=== PATIENT | female | born 1950 | race Two or more races ===

== ENCOUNTER 2021-07-14 13:25 | Inpatient (IN) | payer MEDICARE, MEDICAID, SELFPAY ==
[2021-07-14] VITALS (7 sets, daily range): BP systolic 105–134; BP diastolic 60–107; PULSE 68–89; RESP 16–20; TEMP 36.5–36.6; O2SAT 94–100; BMI 23.3
--- NOTE | ~2021-07-14 | XR_ITS ---
EXAMINATION: XR chest 2V DATE: 07/14/2021 16:30 INDICATION: Mass and one month of loss of appetite and vomiting TECHNIQUE: frontal and lateral views of the chest were obtained. COMPARISON: None FINDINGS: The lungs are clear with no focal airspace opacities, pulmonary edema, pleural effusion or pneumothor ax. Cardiomegaly. S-shaped thoracolumbar scoliosis with moderate spondylosis. IMPRESSION: 1. Cardiomegaly. Reviewed, dictated and finalized at location A. IMPRESSION: 1. Cardiomegaly.
--- NOTE | ~2021-07-14 | CT_ITS ---
EXAMINATION: CTA BRAIN/CAROTID DATE: 07/14/2021 19:23 INDICATION: Confusion TECHNIQUE: Computed tomographic angiography (CTA) of the head and neck was performed with 100 mL Omni paque-350 intravenous contrast. Multiplanar reconstructions and maximum intensity projection 3D-recon structions of the carotid arteries and of the intracranial arteries were created by the technologist on a separate workstation. Precontrast CT of the head was also obtained. Automated exposure control and iterative reconstruction technique were employed.The dose-length product was 1455.90 mGy-cm. COMPARISON: None. FINDINGS: Carotid arteries: The aortic arch is normal in caliber with no dissection or atherosclerotic plaque. There is 0% stenos is of the right carotid bulb relative to normal distal artery lumen diameter (NASCET criteria). There is 0% stenosis of the left carotid bulb relative to normal distal artery lumen diameter. Cervical so ft tissues are unremarkable. The visualized airway and apices of the lungs are clear. Mild cervical s pondylosis. Head: No acute intracranial hemorrhage, acute infarction or abnormal extra axial fluid collection. There is moderate scattered white matter hypoattenuation consistent with chronic small vessel ischemic diseas e. Ventricles are normal and symmetric. No mass/mass effect. No abnormally enhancing brain lesions. Changes of bilateral intraocular lens replacement. The orbits, paranasal sinuses and mastoid air enoc ls are normal. Intracranial arteries There is no hemodynamically significant stenosis in the vertebral, basilar and internal carotid arter ies. There is a 6 x 4 x 4 mm aneurysm extending inferomedially from the C7 (communicating) segment of the left internal carotid artery at the suprasellar cistern. Vertebral arteries are codominant. Both A1 and P1 segments are patent. Cerebral arterial arborization appears symmetric. IMPRESSION: 1. 0% stenosis of the left and right carotid bulbs relative to normal distal artery lumen diameter (N ASCET criteria). 2. Moderate cerebral white matter hypoattenuation consistent with chronic small vessel ischemic disea se. No acute intracranial process. 3. 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 Otherwise unremarkable cerebral CT angiogram. Reviewed, dictated and finalized at location A. IMPRESSION: 1. 0% stenosis of the left and right carotid bulbs relative to normal distal ar lynn lumen diameter (NASCET criteria). 2. Moderate cerebral white matter hypoattenuation consistent with chronic small vessel ischemic disease. No acute intracranial process. 3. 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 Otherwise unremarkable cerebral CT angiog calvin.
--- NOTE | ~2021-07-14 | CT_ITS ---
EXAMINATION: CT brain wo con DATE: 07/21/2021 13:44 INDICATION: Fever of unknown origin. TECHNIQUE: Computed tomography (CT) of the head was performed without intravenous contrast. The mA wa s adjusted according to patient size. Iterative reconstruction technique was employed. The dose-lengt h product was 1059.33 mGy-cm. COMPARISON: Head CT FINDINGS: Motion artifact is noted. There are scattered areas of low attenuation in the cerebral whit e matter and bilateral deep carmona nuclei. There are areas of low attenuation involving the medial temp oral lobes and left parietal lobe. There is no intracranial hemorrhage, acute infarction, or abnormal intracranial mass lesion. The ventricles are normal in size. There is a reconstruction plate with sc rews involving right zygomatic arch. The mastoid air cells are normal. There is mild mucosal thickeni ng in the ethmoid sinuses. There are likely changes of ocular lens replacement surgeries. IMPRESSION: 1. Stable moderate nonspecific cerebral white matter disease, disease of the deep carmona nuclei, and di sease of the temporal lobes and left parietal lobe. These findings may represent chronic small vessel ischemic disease and subacute versus chronic infarcts. The differential diagnosis also includes cere britis such as HSV encephalitis. Abdomen MRI without and with contrast is recommended. Reviewed, dictated and finalized at location A. IMPRESSION: 1. Stable moderate nonspecific cerebral white matter disease, disease of the de ep carmona nuclei, and disease of the temporal lobes and left parietal lobe. These findings may represent chronic small vessel ischemic disease and subacute vers us chronic infarcts. The differential diagnosis also includes cerebritis such a s HSV encephalitis. Abdomen MRI without and with contrast is recommended.
--- NOTE | ~2021-07-14 | XR_ITS ---
XR chest 1V portable DATE: 07/20/2021 10:25 INDICATION: Fever TECHNIQUE: Portable AP chest on 07/20/2021 at 1021 hours COMPARISON: 07/24/2021 AP and lateral chest FINDINGS: Cardiomegaly. There is mild infiltrate or atelectasis in the left lower lung. The lungs oth erwise appear clear. Diffuse osteopenia. Scoliosis and diffuse idiopathic skeletal hyperostosis of the thoracic spine. Diffuse osteopenia. IMPRESSION: Mild infiltrate or atelectasis in the left lower lung Cardiomegaly Reviewed, dictated and finalized at location A.
--- NOTE | ~2021-07-14 | XR_ITS ---
EXAMINATION: XR chest 1V portable DATE: 07/20/2021 22:05 INDICATION: Fever, cough, and altered mental status. TECHNIQUE: A single frontal view of the chest was obtained. COMPARISON: Chest single view 07/20/2021 at 10:17 AM, chest 2 views 07/14/2021 FINDINGS: There is a diffuse interstitial pattern, consistent with mild pulmonary edema. There are ai rspace opacities at left lung base. There is a small left pleural effusion. No pneumothorax or cardio megaly is noted. IMPRESSION: 1. Mild pulmonary edema. 2. Small left pleural effusion. 3. Stable airspace opacities at left lung base, consistent with atelectasis versus pneumonia. 4. Cardiomegaly. Reviewed, dictated and finalized at location A. IMPRESSION: 1. Mild pulmonary edema. 2. Small left pleural effusion. 3. Stable airspace opacities at left lung base, consistent with atelectasis kim isauro pneumonia. 4. Cardiomegaly.
--- NOTE | ~2021-07-14 | MR_ITS ---
EXAMINATION: MR brain/brain stem wo/w con DATE: 07/21/2021 16:15 INDICATION: Fever. Altered mental status. TECHNIQUE: Magnetic resonance imaging (MRI) of the brain and brainstem was performed without and with 11 mL MultiHance intravenous contrast. Sequences included sagittal and axial T1-weighted FSE, axial diffusion-weighted FS EPI, axial T2*-weighted GRE, axial T2-weighted FLAIR Propeller, and axial T2-we ighted Propeller. Postcontrast sequences included axial, sagittal, and coronal T1-weighted FSE. Appar ent diffusion coefficient (ADC) maps were created. COMPARISON: Head CT 07/21/2021 FINDINGS: There is no intracranial hemorrhage or acute ischemic infarct. There is widespread increase d T2-weighted signal intensity in the brain with involvement of areas of the bilateral frontal, tempo ral, parietal, and occipital lobes including involvement of carmona and white matter. There are areas of involvement in the bilateral basal ganglia and thalami, midbrain, perry, and bilateral cerebellar whi te matter. There are some small scattered faint ill-defined areas of contrast enhancement in the brai n. IMPRESSION: 1. Diffuse brain disease. The differential diagnosis includes viral encephalitis and gliomatosis cere elsie. Reviewed, dictated and finalized at location A. IMPRESSION: 1. Diffuse brain disease. The differential diagnosis includes viral encephaliti s and gliomatosis cerebri.
--- NOTE | ~2021-07-14 | XR_ITS ---
EXAMINATION: XR lumbar puncture diagnostic DATE: 07/21/2021 19:58 INDICATION: Encephalitis. Fever. TECHNIQUE: The procedure including the risks, benefits, and alternatives was discussed with the patie nt and the patient's daughter Dina Rodriguez. Risks discussed included spinal headache, bleeding, and infection. The daughter understood the risks and agreed to proceed. The skin overlying the L5-S1 level was prepped and draped in usual sterile fashion. Subcutaneous 1% lidocaine was used for local anesthesia. A 20 gauge spinal needle was advanced under fluoroscopic guidance. The needle was remov ed and the entry site was cleaned and dressed. There were no immediate complications. Fluoroscopy ex posure time was 0.1 minutes. The total number of images was 1. FINDINGS: Real-time fluoroscopy demonstrates the needle at the L5-S1 level. The opening pressure was 9 cm water (Normal range is variably defined as 6-20 cm water and up to 25 cm water in obese patients . Pressure >25 cm water is one of the modified Dandy criteria for idiopathic intracranial hypertensio n). 14 mL of clear, orange fluid was collected in 4 tubes. IMPRESSION: 1. Successful fluoro-guided lumbar puncture. Traumatic tap. Reviewed, dictated and finalized at location A.
--- NOTE | ~2021-07-14 | US_ITS ---
EXAMINATION: US carotid duplex BI DATE: 07/15/2021 08:39 INDICATION: Confusion TECHNIQUE: Grayscale, color Doppler, and pulsed Doppler images of the cervical carotid arteries were obtained. The degree of vessel stenosis is placed in one of the following categories: normal, <50%, 5 0-69%, >=70% but less than near-occlusion, near-occlusion, or total occlusion. Note that percent sten osis relative to normal distal artery lumen diameter is indirectly measured from velocity measurement s as described by Misha, et al. Radiology 2003; 229:340-346. COMPARISON: 07/24/2021 CTA brain carotid FINDINGS: RIGHT: The right common carotid artery (CCA) peak systolic velocity (PSV) is 48.7 cm/s. The right internal c arotid artery (ICA) PSV is 56.7 cm/s. The right ICA end-diastolic velocity (EDV) is 15.8 cm/s. The ri ght ICA/CCA PSV ratio is 1.2. Grayscale and color Doppler images yield an estimate of 0% diameter red uction from plaque in the ICA. The external carotid artery (ECA) PSV is 63.5 cm/s. There is antegrade flow in the right vertebral artery. LEFT: The left CCA PSV is 70.3 cm/s. The left ICA PSV is 42.4 cm/s. The left ICA EDV is 9.8 cm/s. The left ICA/CCA PSV ratio is 0.6. Grayscale and color Doppler images yield an estimate of 0% diameter reducti on from plaque in the ICA. The ECA PSV is 36.9 cm/s. There is antegrade flow in the left vertebral ar lynn. IMPRESSION: 1. 0% stenosis in the right internal carotid artery. 2. 0% stenosis in the left internal carotid artery. Reviewed, dictated and finalized at Location A. Reviewed, dictated and finalized at location A.
--- NOTE | ~2021-07-14 | CT_ITS ---
EXAMINATION: CTA chest PE abdomen pel DATE: 07/21/2021 13:44 INDICATION: Fever of unknown origin. TECHNIQUE: Computed tomography angiography (CTA) of the chest was performed with 100 mL Omnipaque-350 intravenous contrast timed to evaluate the pulmonary arteries. Coronal maximum intensity projection 3D-reconstructions were created by the technologist. Computed tomography (CT) of the abdomen and pelv is was performed with intravenous contrast. Automated exposure control and iterative reconstruction t echnique were employed. The dose-length product was 954.73 mGy-cm. COMPARISON: None. FINDINGS: CTA chest: Motion artifact is noted. There is mild atelectasis in left lower lobe. There is a small l eft pleural effusion. Cardiomegaly is noted. There is a moderate-sized pericardial effusion with fernando cardial enhancement. There are acute pulmonary emboli in right upper lobe, right middle lobe, and rig ht lower lobe. Sensitivity for other sites of involvement is decreased by motion artifact. There are bridging endplate osteophytes at multiple levels in the spine, consistent with diffuse idiopathic ske letal hyperostosis (DISH). There is trabecular thickening involving T6 vertebral body and right poste rior elements, consistent with Paget disease. CT abdomen and pelvis: There is a small sliding hiatal hernia. The liver, gallbladder, spleen, pancre as, and adrenal glands are normal. There is a 9 mm cyst in right kidney. There is a 16 mm cyst in lef t kidney. There are no dilated loops of bowel. The appendix is normal. There are no pathologically en larged lymph nodes. There is no free intraperitoneal fluid. There is moderate lumbar spondylosis. Tra becular thickening in L5 vertebral body may be at Paget disease or a hemangioma. IMPRESSION: 1. Acute right-sided pulmonary emboli. 2. Small left pleural effusion. 3. Moderate-sized pericardial effusion. Pericardial enhancement suggests an exudate. 4. Cardiomegaly. Reviewed, dictated and finalized at location A. IMPRESSION: 1. Acute right-sided pulmonary emboli. 2. Small left pleural effusion. 3. Moderate-sized pericardial effusion. Pericardial enhancement suggests an exu date. 4. Cardiomegaly.
[2021-07-14 17:09] LABS: Basophils Percent Auto 0.4 % (0.2-1.2); Eosinophils Percent Auto 0.4 % (0-4.4); Hematocrit 31.5 % (37.0-47.0); Hemoglobin 10.2 g/dL (12.0-15.0); Immature Granulocyte Absolute 0.04 K/mm3 (0.00-0.031); Immature Granulocyte Percent A 0.6 % (0-0.5); Lymphocytes Absolute Auto 1.21 K/mm3 (0.9-3.2); Lymphocytes Percent Auto 18.1 % (18.3-44.2); Mean Corpuscular HGB Conc 32.4 g/dl (32-36); Mean Corpuscular Hemoglobin 28.7 pg (26-34); Mean Corpuscular Volume 88.5 fl (80-100); Mean Platelet Volume 9.6 fl (7.4-10.4); Monocytes Absolute Auto 0.6 K/mm3 (0.1-0.6); Monocytes Percent Auto 8.4 % (2.6-8.5); Neutrophils Absolute Auto 4.8 K/mm3 (1.3-6.7); Neutrophils Percent Auto 72.1 % (45.5-73.1); Platelet Count Result 402 k/mm3 (150-375); Red Blood Count 3.56 M/mm3 (4.2-5.4); Red Cell Distribution Width 13.5 % (11.5-14.5); White Blood Count 6.7 K/mm3 (4.5-10.0)
[2021-07-14 17:19] LABS: Alanine Aminotransferase 8 U/L (4-35); Albumin Level 4.4 g/dL (3.5-5.1); Alkaline Phosphatase 93 U/L (38-126); Anion Gap 12 mmol/L (8-16); Aspartate Amino Transferase 28 U/L (14-36); Bilirubin,Total 0.6 mg/dL (0.2-1.3); Blood Urea Nitrogen 13 mg/dL (7-17); Calcium 9.2 mg/dL (8.4-10.2); Carbon Dioxide 16 mmol/L (22-30); Chloride 101 mmol/L (98-107); Estimated CRCL calculation 52 ml/min; Estimated Glomerular Filt Rate > 60; Glucose 103 mg/dL (65-110); Lipase 256 U/L (23-300); Potassium 3.7 mmol/L (3.4-5.0); Sodium 129 mmol/L (137-145)
[2021-07-14 17:47] LABS: Alveolar/Arterial O2 Gradient 31.6 mmHg; Base Excess ABG -3.9 mEq/l (+/-2.0); Fractional Inspired Oxygen 21 %; HCO3 ABG 17.9 mEq/l (22.0-26.0); Oxygen Content ABG 13.6 %vol (16.0-22.0); Oxygen Saturation ABG 97.7 % (95.0-100.0); Oxyhemoglobin 96.1 % THb (90.0-100.0); PO2 ABG 90.7 mmHg (80.0-100.0); PO2 FiO2 Ratio Arterial Blood 4.32 %
[2021-07-14 17:50] LABS: Device ROOM AIR; Modified Allen's Test Pass; PCO2 ABG 22.9 mmHg (35.0-45.0); Site Drawn RIGHT RADIAL
--- NOTE | 2021-07-14 18:09 | ED.GENADULT ---
HPI - General Adult General Chief complaint: Unspecified Stated complaint: weakness Time Seen by Provider: 07/14/21 15:36 Source: family Mode of arrival: ambulatory Limitations: language barrier, clinical condition and dementia History of Present Illness HPI narrative: 70-year-old female Brought in by her daughter for weakness poor appetite and general failure to thrive Patient understands Danish but does not speak it well and the daughter does all the interpreting and gives all the history She says that her mom came from [facility] to live with her brother and Vichy between ten and 15 years ago She recently has been diagnosed with dementia For several months she has had a poor appetite, subpar p.o. intake, and has been losing weight Last week she had a low-grade fever on a couple of occasions She has been seen by her PCP Dr. Oquendo in [place] for this and has had some outpatient work-up and a upper endoscopy It sounds like the main reason why she came to the hospital today was because she is with her daughter this weekend instead of with her son, and the daughter was unsatisfied with the absence of progress being made as an outpatient, not that there is been any real change in her condition Related Data Allergies Allergy/AdvReac Type Severity Reaction Status Date / Time No Known Allergies Allergy Verified 07/14/21 14:58 Review of Systems Review of Systems: All systems reviewed & are unremarkable except as noted in HPI and below Constitutional: Constitutional: Reports no additional constitutional complaints, Reports anorexia, Denies chills, Reports fatigue, Reports fever(s), Denies headache(s), Reports lethargy, Reports malaise, Reports poor appetite and Reports weakness Eyes: Eyes: Reports no additional eye complaints and Denies change in vision ENT: Denies headache(s) and Denies sore throat Cardiovascular: Cardiovascular: Denies chest pain and Denies dyspnea Respiratory: Respiratory: Denies cough and Denies dyspnea Gastrointestinal: Gastrointestinal: Denies abdominal pain, Denies bloating, Denies diarrhea and Denies vomiting Genitourinary: Genitourinary: Denies dysuria Musculoskeletal: Musculoskeletal: Denies deformity, Denies arthralgias, Denies joint swelling and Denies numbness Integumentary/Breasts: Skin/Breast: Denies rash and Denies wounds Neurologic: Denies headache(s), Denies focal weakness and Denies numbness Psychiatric: Psychiatric: Reports no additional psychiatric complaints Endocrine: Endocrine: Reports no additional endocrine complaints Hematologic/Lymphatic: Hematologic/Lymphatic: Reports no additional hematologic/lymphatic complaints Allergic/Immunologic: Allergic/Immunologic: Reports no additional allergic/immunologic complaints [facility] Past Medical History Medical History (Updated 07/14/21 @ 18:37 by Brenton Antony MD) Dementia Exam Const: General: cooperative and no acute distress HENMT: Head: normal to inspection, normocephalic and atraumatic Ears: external ears normal General nose exam: no epistaxis Mouth: Yes moist mucous membranes Eyes: Conjunctivae: conjunctivae normal EOM: EOMs intact bilaterally Neck: Neck: normal visual inspection, supple and no JVD Resp: Effort & Inspection: normal respiratory effort and not labored Auscultation: clear to auscultation bilaterally, no rales, no rhonchi, no wheezes and other (BS =) Cardio: Rate: regular rate Rhythm: regular rhythm Heart sounds: no murmurs GI: GI Palp: Yes Soft to palpation, No Tenderness to palpation present (GI), No Guarding due to palpation present (GI), Yes No hepatosplenomegaly present and No Palpable mass present Skin: General skin exam: normal color and no rashes or lesions noted Neuro: General: moves all extremities Other: Moves grossly equally x4 Extrem: General: normal to inspection and no pedal edema Psych: Affect: normal affect Course Course Emergency Course: Discussed with hos
[2021-07-14 18:23] LABS: Sodium Urine Random 28 meq/L
[2021-07-14 18:52] LABS: Cortisol Random 7.05 ug/dL
[2021-07-14 19:12] LABS: Thyroid Stimulating Hormone Reflex 0.676 uIU/mL (0.465-4.68)
--- NOTE | 2021-07-14 19:41 | PC.NURSE ---
report to lucina room is being cleaned.
[2021-07-14] MEDS: SODIUM CHLORIDE 0.9% IV 1,000 ML 100 ML IV CONT (19:50)
[2021-07-14 19:51] LABS: Magnesium 1.9 mg/dL (1.6-2.3); Potassium 3.5 mmol/L (3.4-5.0)
[2021-07-14 19:59] LABS: Anion Gap 12 mmol/L (8-16); Blood Urea Nitrogen 11 mg/dL (7-17); Calcium 8.8 mg/dL (8.4-10.2); Carbon Dioxide 19 mmol/L (22-30); Chloride 97 mmol/L (98-107); Estimated CRCL calculation 52 ml/min; Estimated Glomerular Filt Rate > 60; Glucose 102 mg/dL (65-110); Sodium 128 mmol/L (137-145)
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
--- NOTE | 2021-07-14 20:34 | ADMGEN ---
This patient, Jj Rodriguez, was admitted to 2 Medical Room 245-01 @ 2024. Patient/family oriented to hospital policies and general routines including ID bracelet, bed and alarms, visiting hours, pain management, procedures, bathroom and other care routines, personal items, smoking policy, room service/diet, and visiting hours. Information on how to activate the Rapid Response Team has been discussed. Patient/Family are encouraged to report perceived risks to care and to ask questions if they do not understand what they are told or what they should do.
--- NOTE | 2021-07-14 21:25 | ECG_ITS ---
Measurements Intervals [place] Rate: 82 P: -7 WI: 188 QRS: 0 QRSD: 84 T: -19 QT: 387 QTc: 455 Interpretive Statements SINUS RHYTHM INCOMPLETE RIGHT BUNDLE BRANCH BLOCK LOW QRS VOLTAGE IN PRECORDIAL LEADS INFERIOR INFARCT, AGE INDETERMINATE ST-T WAVE ABNORMALITY IN ANTERIOR LEADS- CONSIDER ISCHEMIA ABNORMAL ECG Electronically Signed On 07-16-2021 14:27:44 CDT by Addi Calero D.O.
[2021-07-14 22:01] LABS: Anion Gap 11 mmol/L (8-16); Blood Urea Nitrogen 10 mg/dL (7-17); Calcium 8.8 mg/dL (8.4-10.2); Carbon Dioxide 19 mmol/L (22-30); Chloride 100 mmol/L (98-107); Estimated CRCL calculation 52 ml/min; Estimated Glomerular Filt Rate > 60; Glucose 95 mg/dL (65-110); Magnesium 1.9 mg/dL (1.6-2.3); Potassium 3.9 mmol/L (3.4-5.0); Sodium 130 mmol/L (137-145)
[2021-07-14] MEDS: FAMOTIDINE 20 MG/2 ML VIAL IV PUSH (22:02)
[2021-07-15 04:49] VITALS: BP 118/69; PULSE 87; RESP 16; TEMP 37; O2SAT 100
[2021-07-15 05:40] LABS: Hematocrit 26.6 % (37.0-47.0); Hemoglobin 8.9 g/dL (12.0-15.0); Mean Corpuscular HGB Conc 33.5 g/dl (32-36); Mean Corpuscular Hemoglobin 27.8 pg (26-34); Mean Corpuscular Volume 83.1 fl (80-100); Mean Platelet Volume 9.8 fl (7.4-10.4); Platelet Count Result 364 k/mm3 (150-375); Red Cell Distribution Width 13.3 % (11.5-14.5); White Blood Count 5.2 K/mm3 (4.5-10.0)
[2021-07-15 06:04] LABS: Anion Gap 11 mmol/L (8-16); Blood Urea Nitrogen 7 mg/dL (7-17); Calcium 8.4 mg/dL (8.4-10.2); Carbon Dioxide 18 mmol/L (22-30); Chloride 102 mmol/L (98-107); Estimated CRCL calculation 52 ml/min; Estimated Glomerular Filt Rate > 60; Glucose 99 mg/dL (65-110); Lactate Dehydrogenase 390 U/L (313-618); Magnesium 1.8 mg/dL (1.6-2.3); Potassium 3.3 mmol/L (3.4-5.0); Sodium 131 mmol/L (137-145)
[2021-07-15 06:41] LABS: Add Urine Microscopic? YES; Appearance Urine Clear (Clear); Bilirubin Urine Negative (Negative); Blood Urine Negative (Negative); Color Urine Yellow (Yellow); Glucose Urine UA Negative (Negative); Ketones Urine 1+ mg/dL (Negative); Leukocyte Esterase Ur 1+ LEU/UL (Negative); Mucus Urine Moderate /lpf; Nitrate Urine Negative (Negative); Protein Urine Negative (Negative); Squamous Epithelial Cell Urine Occasional /hpf (Few); Urobilinogen Urine Negative mg/dL (<2.0)
[2021-07-15 06:46] LABS: Thyroid Stimulating Hormone Reflex 0.845 uIU/mL (0.465-4.68)
[2021-07-15 07:15] LABS: Specific Grav Ur 1.059 (1.001-1.035)
[2021-07-15] MEDS: FAMOTIDINE 20 MG/2 ML VIAL IV PUSH ×2 (08:50→21:02)
--- NOTE | 2021-07-15 12:36 | PM.IMPN ---
Progress Note: A&P Assessment and Plan (1) AMS (altered mental status): Code(s): R41.82 - Altered mental status, unspecified Status: Acute Assessment and Plan: Suspect multifactorial Some hx of dementia Increased confusion last several days Poor appetite and decreased oral intake Recently dx of UTI on Macrobid ECHO pending (2) Hyponatremia: Code(s): E87.1 - Hypo-osmolality and hyponatremia Status: Acute Assessment and Plan: Na+ 131 today, 128 on admission On hydrochlorothiazide and recently started on an SSRI Urine and blood osmolarity pending Continue NS Monitor (3) Depression with anxiety: Code(s): F41.8 - Other specified anxiety disorders Status: Chronic Assessment and Plan: The patient was recently started on an SSRI, missed last day or two before admission (4) Adult failure to thrive: Code(s): R62.7 - Adult failure to thrive Status: Acute Assessment and Plan: Hx of dementia Monitor (5) Aneurysm of left internal carotid artery: Code(s): I67.1 - Cerebral aneurysm, nonruptured Status: Acute Assessment and Plan: CTA showed 6 x 4 x 4 mm aneurysm at the suprasellar cistern arising from the C7 segment of the left internal carotid artery Pt has been accepted by Dr. Mcgarry at [facility] (VS); Dr. Ortega consulted (NS) Keep SBP <140 Supportive care Additional Plan transfer to [facility] when bed available Subjective Date/time seen: 07/15/21 12:36 Interval history: pt seen and evaluated; [id number] at the bedside; labs, VS, diagnostic reports reviewed; denies any MUÑOZ, dizziness, CP or SOB Review of Systems Review of Systems: All systems reviewed & are unremarkable except as noted in HPI and below Exam Const: General: no acute distress, alert and awake Orientation/consciousness: patient oriented x3 HENMT: Head: normocephalic and atraumatic Ears: hearing grossly normal bilaterally and external ears normal Face and sinus: face symmetric Mouth: Yes Normal oral and palatal mucosa present Eyes: EOM: EOMs intact bilaterally Neck: Neck: full ROM, trachea midline and no JVD Resp: Effort & Inspection: normal respiratory effort Auscultation: clear to auscultation bilaterally Cardio: Jugular venous distension: no JVD Rate: regular rate Rhythm: regular rhythm Heart sounds: S1 normal heart sound present and S2 normal heart sound present GI: GI Palp: Yes Soft to palpation Auscultation: normal bowel sounds : General: Yes no CVA tenderness Skin: General skin exam: normal color Rashes: no rashes Neuro: General: patient oriented x3 and CN's II-XI intact bilaterally Speech: normal speech Psych: Appearance: grossly normal Affect: normal affect Judgement: Good judgement present (Psych) Objective Data Vital Signs Vital Signs: Vital Signs - 24 hr 07/14/21 13:47 07/14/21 14:00 07/14/21 15:00 Temperature 36.5 C Pulse Rate 89 81 74 Respiratory Rate 18 17 18 Blood Pressure 105/66 125/85 118/68 Pulse Oximetry 100 96 99 07/14/21 16:30 07/14/21 18:44 07/14/21 19:31 Temperature Pulse Rate 76 69 80 Respiratory Rate 19 19 20 Blood Pressure 134/80 123/70 130/107 H Pulse Oximetry 94 100 100 07/14/21 20:15 07/15/21 04:49 Temperature 36.6 C 37.0 C Pulse Rate 68 87 Respiratory Rate 16 16 Blood Pressure 113/60 118/69 Pulse Oximetry 97 100 Intake/Output Intake/Output: Intake & Output 07/12/21 07/13/21 07/14/21 07/15/21 23:59 23:59 23:59 23:59 Intake Total 1300 Output Total 300 Balance 1000 Meds/Results Medications: Active Medications Generic Name Dose Route Start Last Admin Trade Name Freq PRN Reason Stop Dose Admin Famotidine 20 mg 07/14/21 21:00 07/15/21 08:50 Famotidine 20 Mg/2 Ml Vial IV PUSH 20 mg Q12HR DIDIER Administration Hydralazine HCl 10 mg 07/14/21 21:32 Hydralazine Hcl 20 Mg/Ml Vial IV PUSH Q8H PRN Blood Pressure - High Potassium Chlori
[2021-07-15 13:45] VITALS: BP 128/72; PULSE 76; RESP 16; TEMP 36.4; O2SAT 100
[2021-07-15 21:31] VITALS: BP 128/56; PULSE 115; RESP 16; TEMP 36.9; O2SAT 97
--- NOTE | 2021-07-16 | ECHO_ITS ---
Patient Info Name: Jj Rodriguez Age: 70 years : 1950 Gender: Female Ht: 63 in Wt: 131 lbs BSA: 1.63 m2 HR: 72 bpm BP: 128 / 56 mmHg Technical Quality: Good Exam Date: 07/16/2021 10:22 AM Exam Location: [facility] Exam Room: [facility] Patient Status: Inpatient Admit Date: 07/16/2021 Staff Ordering Physician: Nicole Pina NP Net Lead Architect: Mckenna Matthew RDCS Attending Provider: Estefanía Thomas MD Referring Physician: Yovani BENITEZ; Exam Type: CA echo doppler w bubble study Study Info Indications - confused Complete two-dimensional, color flow and Doppler transthoracic echocardiogram is performed with agitated saline. Contrast/Agitated Saline Contrast/Ag. Saline: Agitated Saline Amount: 20.00 ml Administered By: Yanet Chakraborty RN Existing IV Access: Yes IV Access Condition: patent with no signs of infiltration Summary 1. Left ventricular chamber dimension is normal. 2. Left ventricular systolic function is normal, estimated at 60-65%. 3. There is mildly increased left ventricular wall thickness. 4. The left ventricular diastolic function is grade I diastolic dysfunction. 5. Agitated saline injection with and without valsalva maneuver suboptimally opacified right cardiac chambers with a few bubbles shunted to left sided cardiac chambers suggesting small patent foramen ovale. 6. 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 7. There is trace tricuspid valve regurgitation. 8. No pulmonary hypertension, estimated pulmonary arterial systolic pressure is 23 mmHg. 9. There is small circumferential pericardial effusion measuring between 0.7 cm to 1.0 cm. There is echogenic material adherent to right ventricular free wall suggesting chronicity of pericardial effusion. Left Ventricle Tissue doppler E/e' is not measured. Left ventricular chamber dimension is normal. Left ventricular systolic function is normal, estimated at 60-65%. There is mildly increased left ventricular wall thickness. The left ventricular diastolic function is grade I diastolic dysfunction. Right Ventricle Right ventricular chamber dimension is normal. Right ventricular systolic function is normal. Left Atria Left atrial chamber dimension is normal. Right Atria Right atrial chamber dimension is normal. Atrial Septum Agitated saline injection with and without valsalva maneuver suboptimally opacified right cardiac chambers with a few bubbles shunted to left sided cardiac chambers suggesting small patent foramen ovale. 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 Suspected patent foramen ovale visualized by 2D, color flow and agitated saline imaging. Aortic Valve The aortic valve is trileaflet. There is no aortic valve stenosis. There is no aortic valve regurgitation. Pulmonic Valve There is no pulmonic regurgitation. Mitral Valve There is no mitral valve stenosis. There is no mitral valve regurgitation. Tricuspid Valve There is trace tricuspid valve regurgitation. No pulmonary hypertension, estimated pulmonary arterial systolic pressure is 23 mmHg. Pericardium/Pleural There is small circumferential pericardial effusion measuring between 0.7 cm to 1.0 cm. There is echogenic material adherent to right ventricular free wall suggesting chronicity of pericardial effusion. No cardiac tamponade. Inferio
[2021-07-16 05:58] VITALS: BP 131/68; PULSE 87; RESP 16; TEMP 36.6; O2SAT 98
[2021-07-16] MEDS: FAMOTIDINE 20 MG/2 ML VIAL IV PUSH ×2 (09:15→20:18)
[2021-07-16 09:49] LABS: Hemoglobin 9.5 g/dL (12.0-15.0); Mean Corpuscular HGB Conc 32.8 g/dl (32-36); Mean Corpuscular Hemoglobin 28.4 pg (26-34); Mean Corpuscular Volume 86.8 fl (80-100); Mean Platelet Volume 9.6 fl (7.4-10.4); Platelet Count Result 372 k/mm3 (150-375); Red Blood Count 3.34 M/mm3 (4.2-5.4); Red Cell Distribution Width 13.9 % (11.5-14.5); White Blood Count 4.5 K/mm3 (4.5-10.0)
[2021-07-16 10:00] LABS: Anion Gap 8 mmol/L (8-16); Blood Urea Nitrogen 6 mg/dL (7-17); Calcium 9.1 mg/dL (8.4-10.2); Carbon Dioxide 20 mmol/L (22-30); Chloride 103 mmol/L (98-107); Estimated CRCL calculation 52 ml/min; Estimated Glomerular Filt Rate > 60; Glucose 111 mg/dL (65-110); Potassium 3.5 mmol/L (3.4-5.0); Sodium 131 mmol/L (137-145)
--- NOTE | 2021-07-16 10:14 | PM.IMPN ---
Progress Note: A&P Assessment and Plan (1) AMS (altered mental status): Code(s): R41.82 - Altered mental status, unspecified Status: Acute Assessment and Plan: Suspect multifactorial Some hx of dementia Increased confusion last several days Poor appetite and decreased oral intake Recently dx of UTI on Macrobid ECHO pending (2) Hyponatremia: Code(s): E87.1 - Hypo-osmolality and hyponatremia Status: Acute Assessment and Plan: Na+ 131 today, 128 on admission On hydrochlorothiazide and recently started on an SSRI Urine and blood osmolarity pending S/p NS Monitor (3) Depression with anxiety: Code(s): F41.8 - Other specified anxiety disorders Status: Chronic Assessment and Plan: The patient was recently started on an SSRI, missed last day or two before admission (4) Adult failure to thrive: Code(s): R62.7 - Adult failure to thrive Status: Acute Assessment and Plan: Hx of dementia Monitor (5) Aneurysm of left internal carotid artery: Code(s): I67.1 - Cerebral aneurysm, nonruptured Status: Acute Assessment and Plan: CTA showed 6 x 4 x 4 mm aneurysm at the suprasellar cistern arising from the C7 segment of the left internal carotid artery Pt has been accepted by Dr. Mcgarry at [facility] ([facility]); Dr. Ortega consulted (NS) Keep SBP <140 Supportive care Additional Plan transfer to [facility] when bed available Subjective Date/time seen: 07/16/21 10:14 Interval history: 07/15 pt seen and evaluated; [id number] at the bedside; labs, VS, diagnostic reports reviewed; denies any MUÑOZ, dizziness, CP or SOB 07/16 pt seen and evaluated; denies MUÑOZ; transfer to [facility] pending bed availability Review of Systems Review of Systems: All systems reviewed & are unremarkable except as noted in HPI and below Exam Const: General: no acute distress, alert and awake Orientation/consciousness: patient oriented x3 HENMT: Head: normocephalic and atraumatic Ears: hearing grossly normal bilaterally and external ears normal Face and sinus: face symmetric Mouth: Yes Normal oral and palatal mucosa present Neck: Neck: full ROM, trachea midline and no JVD Resp: Auscultation: clear to auscultation bilaterally Cardio: Jugular venous distension: no JVD Rate: regular rate Rhythm: regular rhythm Heart sounds: S1 normal heart sound present and S2 normal heart sound present GI: Auscultation: normal bowel sounds : General: Yes no CVA tenderness Back/Spine/Pelvis: Back: no CVA tenderness Skin: General skin exam: normal color Rashes: no rashes Neuro: General: patient oriented x3 and CN's II-XI intact bilaterally Speech: normal speech Psych: Appearance: grossly normal Affect: normal affect Judgement: Good judgement present (Psych) Objective Data Vital Signs Vital Signs: Vital Signs - 24 hr 07/15/21 13:45 07/15/21 21:31 07/16/21 05:58 Temperature 36.4 C 36.9 C 36.6 C Pulse Rate 76 115 H 87 Respiratory Rate 16 16 16 Blood Pressure 128/72 128/56 L 131/68 Pulse Oximetry 100 97 98 Intake/Output Intake/Output: Intake & Output 07/13/21 07/14/21 07/15/21 07/16/21 23:59 23:59 23:59 23:59 Intake Total 2070 150 Output Total 300 Balance 1770 150 Meds/Results Medications: Active Medications Generic Name Dose Route Start Last Admin Trade Name Freq PRN Reason Stop Dose Admin Famotidine 20 mg 07/14/21 21:00 07/16/21 09:15 Famotidine 20 Mg/2 Ml Vial IV PUSH 20 mg Q12HR DIDIER Administration Hydralazine HCl 10 mg 07/14/21 21:32 Hydralazine Hcl 20 Mg/Ml Vial IV PUSH Q8H PRN Blood Pressure - High Ondansetron HCl 4 mg 07/14/21 18:23 Ondansetron Inj 4 Mg/2 Ml Vial IV PUSH Q4H PRN Nausea Radiology Results: ITS Impressions Chest X-Ray 07/14/21 18:28 IMPRESSION: 1. Cardiomegaly. Head/Neck CTA 07/14/21 19:27 IMPRESSION: 1. 0% stenosis of the left and right carotid bulbs relat
[2021-07-16 12:33] VITALS: BMI 23.3
[2021-07-16 14:00] VITALS: BP 125/67; PULSE 75; RESP 16; TEMP 36.6; O2SAT 100
[2021-07-16 19:43] VITALS: PULSE 75; RESP 16; O2SAT 100
[2021-07-16 20:42] VITALS: BP 136/67; PULSE 91; RESP 18; TEMP 37.4; O2SAT 100
[2021-07-17 04:56] VITALS: BP 118/74; PULSE 86; RESP 18; TEMP 36.6; O2SAT 100
[2021-07-17 05:47] LABS: Hematocrit 28.8 % (37.0-47.0); Hemoglobin 9.8 g/dL (12.0-15.0); Mean Corpuscular Hemoglobin 28.6 pg (26-34); Mean Platelet Volume 9.6 fl (7.4-10.4); Platelet Count Result 374 k/mm3 (150-375); Red Blood Count 3.43 M/mm3 (4.2-5.4); Red Cell Distribution Width 13.5 % (11.5-14.5)
[2021-07-17 06:02] LABS: Anion Gap 10 mmol/L (8-16); Blood Urea Nitrogen 9 mg/dL (7-17); Calcium 8.9 mg/dL (8.4-10.2); Carbon Dioxide 19 mmol/L (22-30); Chloride 103 mmol/L (98-107); Estimated CRCL calculation 46 ml/min; Estimated Glomerular Filt Rate > 60; Glucose 105 mg/dL (65-110); Potassium 3.7 mmol/L (3.4-5.0); Sodium 132 mmol/L (137-145)
[2021-07-17] MEDS: FAMOTIDINE 20 MG/2 ML VIAL IV PUSH ×2 (08:08→20:22)
--- NOTE | 2021-07-17 11:56 | PCPTNOTE ---
On 07/17/21, the student, Herbert Jacome, provided care and completed [facility] documentation on this patient. I have reviewed the student's documentation and agree with the findings.
--- NOTE | 2021-07-17 13:50 | PM.IMPN ---
Progress Note: A&P Assessment and Plan (1) Aneurysm of left internal carotid artery: Code(s): I67.1 - Cerebral aneurysm, nonruptured Status: Acute Assessment and Plan: CTA showed 6 x 4 x 4 mm aneurysm at the suprasellar cistern arising from the C7 segment of the left internal carotid artery Pt has been accepted by Dr. Mcgarry at [facility] ([facility]); Dr. Ortega consulted (NS) Keep SBP <140 She is not having any worsening symptoms at this time for her aneurysm. Supportive care (2) AMS (altered mental status): Code(s): R41.82 - Altered mental status, unspecified Status: Acute Assessment and Plan: Suspect multifactorial from dementia and UTI. She was started on IV antibiotics day 1 ceftriaxone Blood cultures ordered and pending. Poor appetite and decreased oral intake Continue monitoring. (3) Hyponatremia: Code(s): E87.1 - Hypo-osmolality and hyponatremia Status: Acute Assessment and Plan: Na+ 132 today, 128 on admission Monitor (4) Depression with anxiety: Code(s): F41.8 - Other specified anxiety disorders Status: Chronic Assessment and Plan: The patient was recently started on an SSRI, missed last day or two before admission previous provider continues to say she has been on an SSRI yet there is no home medications and she is not currently on any SSRIs so the nurse will recheck her home med list with her daughter when she comes back (5) Adult failure to thrive: Code(s): R62.7 - Adult failure to thrive Status: Acute Assessment and Plan: Hx of dementia. Stable at this time per daughter. Monitor Additional Plan transfer to [facility] when bed available Time Spent With Patient Time with patient: 25 - 35 minutes Subjective Date/time seen: 07/17/21 13:50 Interval history: Date of service 07/17/2021: The patient reports feeling well today. Her daughter is at bedside for interpretation. The patient has not complained of any headache, vision changes, lightheadedness, dizziness, nausea, vomiting, abdominal pain, leg swelling, calf pain, or any other symptoms at this time. She has been getting up to walk to the back without any issues. Patient's daughter is concerned about home she is resting. She is not complaining of any dysuria, frequent urination, or other UTI symptoms. Review of Systems Review of Systems: All systems reviewed & are unremarkable except as noted in HPI and below Exam Narrative: General: 70-year-old woman sitting up on the side of the bed talking to her daughter. Appears comfortable. In no acute distress. Skin: No jaundice or cyanosis. Good skin turgor. Neck: Full range of motion. Supple. Respiratory: Lungs are clear to auscultation bilaterally. No bony chest wall tenderness. Cardiovascular: The heart has a regular rate and rhythm without murmur. No carotid bruits. Lower extremities: No lower extremity edema. Distal pulses are easily palpated. No calf tenderness to palpation. Gastrointestinal: The abdomen is soft, nontender and nondistended with active bowel sounds. Psychiatric: Lucid and oriented. Memory intact. Neurologic: No focal deficits. Speech is clear. No facial drooping. Objective Data Vital Signs Vital Signs: Vital Signs - 24 hr 07/16/21 14:00 07/16/21 19:43 07/16/21 20:42 Temperature 97.8 F 99.4 F Pulse Rate 75 75 91 Respiratory Rate 16 16 18 Blood Pressure 125/67 136/67 Pulse Oximetry 100 100 100 07/17/21 04:56 Temperature 98 F Pulse Rate 86 Respiratory Rate 18 Blood Pressure 118/74 Pulse Oximetry 100 Intake/Output Intake/Output: Intake & Output 07/14/21 07/15/21 07/16/21 07/17/21 23:59 23:59 23:59 23:59 Intake Total 2574 156 290 O
[2021-07-17 14:00] VITALS: BP 122/70; PULSE 76; RESP 18; TEMP 36.4; O2SAT 100
[2021-07-17 20:00] VITALS: PULSE 86; RESP 18; O2SAT 100
[2021-07-17 20:10] VITALS: BP 131/77; PULSE 86; RESP 18; TEMP 36.3; O2SAT 100
[2021-07-17 23:10] LABS: Osmolality, Urine 570 mOsm/kg (50-1200)
[2021-07-18 04:12] VITALS: BP 113/71; PULSE 88; RESP 18; TEMP 36.8; O2SAT 99
[2021-07-18] MEDS: FAMOTIDINE 20 MG/2 ML VIAL IV PUSH ×2 (08:02→20:28)
--- NOTE | 2021-07-18 10:59 | PCNFU ---
Nutrition Follow-Up Complete: Unintended weight loss as related to dementia as evidenced by reported weight loss of up to 30ibs lost in 1 year. Goal: Meet estimated nutritional needs. Patient is progressing towards goal. No new goal at this time. Pt current nutrition is a heart healthy diet receiving ensure compact BID providing an additional 220 calories and 9 grams of protein. Last recorded weight is 59.7 kg. recommend re-weighing patient prior to discharge. Bowel Motility: +BM 07/17/2021 Labs Reviewed: Hgb 9.8, Hct 28.8, Na 132 Meds Noted: Hydralazine Hcl, Ondansetron Hcl Additional Notes: Checked in with patient. Spoke with patient's visitor who requested ensure TID instead of BID. Patient has been enjoying the nutritional supplements and would like to have them offered TID. Her overall appetite has been okay consuming on average 45% of meals ordered. Providing patient with ensure TID will help boost calorie and protein intake. No skin breakdown at this time. Patient had no additional nutritional questions and/or concerns at this time. Will monitor every 5 days.
--- NOTE | 2021-07-18 11:26 | PM.IMPN ---
Progress Note: A&P Assessment and Plan (1) Aneurysm of left internal carotid artery: Code(s): I67.1 - Cerebral aneurysm, nonruptured Status: Acute Assessment and Plan: CTA showed 6 x 4 x 4 mm aneurysm at the suprasellar cistern arising from the C7 segment of the left internal carotid artery Pt has been accepted by Dr. Mcgarry at [facility] ([facility]); Dr. Ortega consulted (NS) Keep SBP <140 She is not having any worsening symptoms at this time for her aneurysm. Supportive care (2) AMS (altered mental status): Code(s): R41.82 - Altered mental status, unspecified Status: Acute Assessment and Plan: Suspect multifactorial from dementia and UTI. She was started on IV antibiotics day #2 ceftriaxone Blood cultures ordered and pending. Poor appetite and decreased oral intake Continue monitoring. (3) Hyponatremia: Code(s): E87.1 - Hypo-osmolality and hyponatremia Status: Acute Assessment and Plan: Stable, Na+ 132 today, 128 on admission Monitor (4) Depression with anxiety: Code(s): F41.8 - Other specified anxiety disorders Status: Chronic Assessment and Plan: The patient was recently started on an SSRI, missed last day or two before admission previous provider continues to say she has been on an SSRI yet there is no home medications and she is not currently on any SSRIs so the nurse will recheck her home med list with her daughter when she comes back (5) Adult failure to thrive: Code(s): R62.7 - Adult failure to thrive Status: Acute Assessment and Plan: Hx of dementia. Stable at this time per daughter. Monitor Additional Plan transfer to [facility] when bed available Time Spent With Patient Time with patient: 25 - 35 minutes Subjective Date/time seen: 07/18/21 11:26 Interval history: Date of service 07/18/2021: The patients daughter is at bedside for interpretation and states the patient is feeling well at this time without any complaints. The patient has not complained of any headache, vision changes, lightheadedness, dizziness, nausea, vomiting, abdominal pain, leg swelling, calf pain, or any other symptoms at this time. She has been getting up to walk to the back without any issues. Patient's daughter is concerned about how much she is resting, but states she sleeps a lot at home as well. She is not complaining of any dysuria, frequent urination, or other UTI symptoms. Review of Systems Review of Systems: All systems reviewed & are unremarkable except as noted in HPI and below Exam Narrative: General: 70-year-old woman laying in bed resting, easily arousable. Appears comfortable. In no acute distress. Skin: No jaundice or cyanosis. Good skin turgor. Neck: Full range of motion. Supple. Respiratory: Lungs are clear to auscultation bilaterally. No bony chest wall tenderness. Cardiovascular: The heart has a regular rate and rhythm without murmur. No carotid bruits. Lower extremities: No lower extremity edema. Distal pulses are easily palpated. No calf tenderness to palpation. Gastrointestinal: The abdomen is soft, nontender and nondistended with active bowel sounds. Psychiatric: Lucid and oriented. Memory intact. Neurologic: No focal deficits. Speech is clear. No facial drooping. Objective Data Vital Signs Vital Signs: Vital Signs - 24 hr 07/17/21 14:00 07/17/21 20:00 07/17/21 20:10 Temperature 97.5 F L 97.4 F L Pulse Rate 76 86 86 Respiratory Rate 18 18 18 Blood Pressure 122/70 131/77 Pulse Oximetry 100 100 100 07/18/21 04:12 Temperature 98.3 F Pulse Rate 88 Respiratory Rate 18 Blood Pressure 113/71 Pulse Oximetry 99 Intake/Output Intake/Output: Intake & Output 07/15/
[2021-07-18 14:00] VITALS: BP 121/66; PULSE 86; RESP 18; TEMP 36.9; O2SAT 100
[2021-07-18 20:00] VITALS: PULSE 86; RESP 18; O2SAT 100
--- NOTE | 2021-07-18 20:49 | PC.NURSE ---
2030 07/18 ENTERED PT ROOM TO DO ASSESSMENT SPOKE WITH DAUGHTER ABOUT PT MEAL PLAN. NOTICED PT HAD AN UNTOUCHED MEAL TRAY THAT HAD RAW CARROTS AND CELERY WITH HUMMUS. PT HAS MISSING TEETH DAUGHTER STATED PT CANNOT CHEW SUCH HARD FOODS. CHANGED DIET ORDER TO SOFT BITE SIZE ALONG WITH HER HEART HEALTHY DIET SO PT COULD HAVE MEAL TRAYS WITH FOODS EASIER TO CHEW.
[2021-07-18 20:59] VITALS: BP 112/65; PULSE 86; RESP 18; TEMP 37.3; O2SAT 100
[2021-07-19 05:49] LABS: Hematocrit 26.9 % (37.0-47.0); Hemoglobin 8.9 g/dL (12.0-15.0); Mean Corpuscular HGB Conc 33.1 g/dl (32-36); Mean Corpuscular Hemoglobin 28.4 pg (26-34); Mean Corpuscular Volume 85.9 fl (80-100); Mean Platelet Volume 9.9 fl (7.4-10.4); Platelet Count Result 330 k/mm3 (150-375); Red Blood Count 3.13 M/mm3 (4.2-5.4); Red Cell Distribution Width 13.8 % (11.5-14.5); White Blood Count 4.7 K/mm3 (4.5-10.0)
[2021-07-19 06:00] VITALS: BP 118/62; PULSE 80; RESP 16; TEMP 36.6; O2SAT 98
[2021-07-19 06:05] LABS: Anion Gap 12 mmol/L (8-16); Blood Urea Nitrogen 10 mg/dL (7-17); Calcium 8.8 mg/dL (8.4-10.2); Carbon Dioxide 18 mmol/L (22-30); Chloride 103 mmol/L (98-107); Estimated CRCL calculation 52 ml/min; Estimated Glomerular Filt Rate > 60; Glucose 132 mg/dL (65-110); Sodium 133 mmol/L (137-145)
[2021-07-19] MEDS: FAMOTIDINE 20 MG/2 ML VIAL IV PUSH ×2 (08:27→20:56)
[2021-07-19 09:33] LABS: Magnesium 1.8 mg/dL (1.6-2.3)
[2021-07-19] MEDS: POTASSIUM CHLORIDE 20 MEQ TABLET 40 MEQ PO ×2 (09:47→14:35)
--- NOTE | 2021-07-19 13:00 | PM.IMPN ---
Progress Note: A&P Assessment and Plan (1) Aneurysm of left internal carotid artery: Code(s): I67.1 - Cerebral aneurysm, nonruptured Status: Acute Assessment and Plan: CTA showed 6 x 4 x 4 mm aneurysm at the suprasellar cistern arising from the C7 segment of the left internal carotid artery Pt has been accepted by Dr. Mcgarry at [facility] ([facility]); Dr. Ortega consulted (NS) Keep SBP <140 She is not having any worsening symptoms at this time for her aneurysm. Supportive care (2) AMS (altered mental status): Code(s): R41.82 - Altered mental status, unspecified Status: Acute Assessment and Plan: Suspect multifactorial from dementia and UTI. She was started on IV antibiotics day #3 ceftriaxone Blood cultures no growth to date Poor appetite and decreased oral intake Continue monitoring. (3) Hyponatremia: Code(s): E87.1 - Hypo-osmolality and hyponatremia Status: Acute Assessment and Plan: Stable, Na+ 133 today, 128 on admission Monitor (4) Depression with anxiety: Code(s): F41.8 - Other specified anxiety disorders Status: Chronic Assessment and Plan: The patient was recently started on an SSRI, missed last day or two before admission previous provider continues to say she has been on an SSRI yet there is no home medications and she is not currently on any SSRIs so the nurse will recheck her home med list with her daughter when she comes back (5) Adult failure to thrive: Code(s): R62.7 - Adult failure to thrive Status: Acute Assessment and Plan: Hx of dementia. Stable at this time per daughter. Monitor Additional Plan transfer to [facility] when bed available Time Spent With Patient Time with patient: 25 - 35 minutes Subjective Date/time seen: 07/19/21 13:00 Interval history: Date of service 07/19/2021: The patient reports feeling well. Denies lightheadedness, dizziness, nausea, vomiting, abdominal pain, chest pain, SOB, or any other symptoms at this time Review of Systems Review of Systems: All systems reviewed & are unremarkable except as noted in HPI and below Exam Narrative: General: 70-year-old woman sitting up in the chair taking a nap, easily arousable. Appears comfortable. In no acute distress. Skin: No jaundice or cyanosis. Good skin turgor. Neck: Full range of motion. Supple. Respiratory: Lungs are clear to auscultation bilaterally. No bony chest wall tenderness. Cardiovascular: The heart has a regular rate and rhythm without murmur. No carotid bruits. Lower extremities: No lower extremity edema. Distal pulses are easily palpated. No calf tenderness to palpation. Gastrointestinal: The abdomen is soft, nontender and nondistended with active bowel sounds. Psychiatric: Lucid and oriented. Memory intact. Neurologic: No focal deficits. Speech is clear. No facial drooping. Objective Data Vital Signs Vital Signs: Vital Signs - 24 hr 07/18/21 14:00 07/18/21 20:00 07/18/21 20:59 Temperature 98.5 F 99.1 F Pulse Rate 86 86 86 Respiratory Rate 18 18 18 Blood Pressure 121/66 112/65 Pulse Oximetry 100 100 100 07/19/21 06:00 Temperature 97.8 F Pulse Rate 80 Respiratory Rate 16 Blood Pressure 118/62 Pulse Oximetry 98 Intake/Output Intake/Output: Intake & Output 07/16/21 07/17/21 07/18/21 07/19/21 23:59 23:59 23:59 23:59 Intake Total 910 730 870 170 Output Total 2 Balance 910 728 870 170 Meds/Results Medications: Active Medications Generic Name Dose Route Start Last Admin Trade Name Freq PRN Reason Stop Dose Admin Famotidine 20 mg 07/14/21 21:00 07/19/21 08:27 Famotidine 20 Mg/2 Ml Vial IV PUSH 20 mg Q12HR DIDIER Administration Hydralazine
[2021-07-19 14:00] VITALS: BP 120/64; PULSE 82; RESP 16; TEMP 36.9; O2SAT 99
[2021-07-19] MEDS: MAGNESIUM OXIDE 400 MG TABLET PO (14:36)
[2021-07-19 22:00] VITALS: BP 108/65; PULSE 85; RESP 18; TEMP 38.2; O2SAT 100
[2021-07-20] VITALS (10 sets, daily range): BP systolic 91–137; BP diastolic 45–71; PULSE 78–124; RESP 16–25; TEMP 36.8–39.3; O2SAT 91–100
[2021-07-20 07:53] LABS: Hematocrit 28.7 % (37.0-47.0); Hemoglobin 9.5 g/dL (12.0-15.0); Mean Corpuscular HGB Conc 33.1 g/dl (32-36); Mean Corpuscular Hemoglobin 28.2 pg (26-34); Mean Corpuscular Volume 85.2 fl (80-100); Mean Platelet Volume 9.5 fl (7.4-10.4); Platelet Count Result 354 k/mm3 (150-375); Red Blood Count 3.37 M/mm3 (4.2-5.4); Red Cell Distribution Width 13.7 % (11.5-14.5)
[2021-07-20 08:08] LABS: Anion Gap 11 mmol/L (8-16); Blood Urea Nitrogen 10 mg/dL (7-17); Calcium 9.1 mg/dL (8.4-10.2); Carbon Dioxide 19 mmol/L (22-30); Chloride 105 mmol/L (98-107); Estimated CRCL calculation 46 ml/min; Estimated Glomerular Filt Rate > 60; Glucose 108 mg/dL (65-110); Magnesium 1.9 mg/dL (1.6-2.3); Potassium 4.1 mmol/L (3.4-5.0); Sodium 135 mmol/L (137-145)
[2021-07-20] MEDS: FAMOTIDINE 20 MG/2 ML VIAL IV PUSH ×2 (08:55→20:13)
[2021-07-20] MEDS: MAGNESIUM OXIDE 400 MG TABLET PO (08:55)
--- NOTE | 2021-07-20 09:09 | PCPTNOTE ---
Attempted therapy session at 09:04, Pt unavailable due to getting new IV placement. Will attempt again.
[2021-07-20] MEDS: LACTATED RINGERS 1,000 ML 75 ML IV CONT (10:28)
--- NOTE | 2021-07-20 12:46 | PCPTNOTE ---
Attempted to see patient at 10:48 AM and at 12:43 PM this date and patient was sleeping. The second time therapist attempted to see patient her lunch was on her bedside table. Nurses stated that patient's daughter should be here soon.
--- NOTE | 2021-07-20 14:43 | PM.IMPN ---
Progress Note: A&P Assessment and Plan (1) Fever: Code(s): R50.9 - Fever, unspecified Status: Acute Assessment and Plan: Patient spiked a fever of 100.7F overnight and has been slightly tachycardic today. But denies any respiratory symptoms, abdominal symptoms or urinary symptoms. CXR showed LLL atelectasis vs pneumonia. Atelectasis could cause fever. Will order Incentive spirometer We are rechecking vitals since her Oxygenation has been 100-99% during admission with normal respiratory rate. She has been on IV Ceftriaxone for E. coli UTI for #4 Labs are otherwise unremarkable without any change from the day prior Would consider adding antibiotics if she develops any respiratory symptoms or decrease to her oxygenation occurs. Continue monitoring vitals (2) Aneurysm of left internal carotid artery: Code(s): I67.1 - Cerebral aneurysm, nonruptured Status: Acute Assessment and Plan: CTA showed 6 x 4 x 4 mm aneurysm at the suprasellar cistern arising from the C7 segment of the left internal carotid artery Pt has been accepted by Dr. Mcgarry at [facility] ([facility]); Dr. Ortega consulted (NS) Keep SBP <140 She is not having any worsening symptoms at this time for her aneurysm. Supportive care (3) AMS (altered mental status): Code(s): R41.82 - Altered mental status, unspecified Status: Acute Assessment and Plan: Suspect multifactorial from dementia and UTI. She was started on IV antibiotics day #4 ceftriaxone Blood cultures no growth to date Poor appetite and decreased oral intake Continue monitoring. (4) Hyponatremia: Code(s): E87.1 - Hypo-osmolality and hyponatremia Status: Acute Assessment and Plan: Stable, Na+ 135 today, 128 on admission Monitor (5) Depression with anxiety: Code(s): F41.8 - Other specified anxiety disorders Status: Chronic Assessment and Plan: The patient was recently started on an SSRI, missed last day or two before admission previous provider continues to say she has been on an SSRI yet there is no home medications and she is not currently on any SSRIs so the nurse will recheck her home med list with her daughter when she comes back (6) Adult failure to thrive: Code(s): R62.7 - Adult failure to thrive Status: Acute Assessment and Plan: Hx of dementia. Stable at this time per daughter. Monitor Additional Plan transfer to [facility] when bed available Time Spent With Patient Time with patient: 25 - 35 minutes Subjective Date/time seen: 07/20/21 14:43 Interval history: Date of service 07/20/2021: Talked to the patient with her daughter interpreting at bedside. The patient has been feeling well. She denies any cough, shortness of breath, chest pain, lightheadedness, dizziness, nausea, vomiting, abdominal pain, dysuria, frequent urination, dark urine, odor to her urine, or any other symptoms at this time. The patient did not know she had a fever last night and does not feel any palpitations or symptoms currently. She just took a shower and is otherwise feeling well. Review of Systems Review of Systems: All systems reviewed & are unremarkable except as noted in HPI and below Exam Narrative: General: 70-year-old woman sitting up in the chair resting with her daughter at bedside. Appears comfortable. In no acute distress. Skin: No jaundice or cyanosis. Good skin turgor. Neck: Full range of motion. Supple. Respiratory: Inspiratory crackles to left anteriolateral lung field. No wheezing. No bony chest wall tenderness. Cardiovascular: The heart has a regular rate and rhythm without murmur. Lower extremities
--- NOTE | 2021-07-20 21:00 | PM.EVENT ---
Event Note Event Note Event Note: S: I received a call from the patient's nurse with concerns for change in mental status. The patient has become increasingly confused today and ?her eyes have been rolling in the back of her head? and she is not really answering questions or following commands. Upon entering the room the patient was having her vital signs taken and she was tachycardic with a temperature of 102.8? F. the patient would acknowledge my presence only with stimuli and she would only answer her daughter her intermittently in 1 to 2 word sentences though daughter reports that her speech was mostly nonsensical. The patient herself would not provide me with any history or complaints. O: Ill-appearing elderly female in the semi-Singh position in bed. On my arrival she was making a chewing gesture and was trying to chew on the pulse oximeter and on her bed sheets. She would frequently turn her head to the left and shift her gaze far to the left and upwards. During this time she did not seem to respond however with any sort of stimuli, especially in the glabellar region, she would turn her head midline, grimace, and forcefully close her eyes shut. Neck is supple and she allowed me to move her head freely without issue. No nuchal rigidity. She did squeeze my fingers with both of her hands equally and was noted to move upper and lower extremities. Heart was tachycardic without significant murmur. Lung sounds were diminished due to poor effort. Mucous membranes were tacky. No JVD. Abdomen was soft and nontender with positive bowel sounds. She had no significant edema of the lower limbs. Peripheral pulses intact. A: Delirium with fever and prolonged hospitalization. P: Will obtain blood cultures, chest x-ray, and urinalysis. Ofirmev ordered for fever. No indication for brain CT at this time as some of the things I am seeing seem to be behavioral and there are no focal findings or concerns for seizures. Encephalitis/meningitis seem less likely but may be considered if no other source of infection is found. Case discussed with the patient's daughter at bedside and with her nurse. Discussed trying to keep the patient on a normal sleep schedule with a quiet and calm environment (turned on the lights, turn off the television, encourage quite voices at the nurses station at night).
--- NOTE | 2021-07-20 21:07 | PC.NURSE ---
CALLED INTO ROOM PER DAUGHTER, STATES PT NOT ACTING OR BREATHING RIGHT. VITALS TAKEN AND EMORY RIVERO CALLED TO ROOM. EMORY TALKING WITH DAUGHTER NOW
[2021-07-20 23:08] LABS: Basophils Percent Auto 0.2 % (0.2-1.2); Eosinophils Percent Auto 0.4 % (0-4.4); Hematocrit 26.1 % (37.0-47.0); Hemoglobin 8.7 g/dL (12.0-15.0); Immature Granulocyte Absolute 0.02 K/mm3 (0.00-0.031); Immature Granulocyte Percent A 0.4 % (0-0.5); Lymphocytes Absolute Auto 0.44 K/mm3 (0.9-3.2); Lymphocytes Percent Auto 8.1 % (18.3-44.2); Mean Corpuscular HGB Conc 33.3 g/dl (32-36); Mean Corpuscular Hemoglobin 28.5 pg (26-34); Mean Corpuscular Volume 85.6 fl (80-100); Mean Platelet Volume 10.4 fl (7.4-10.4); Monocytes Absolute Auto 0.4 K/mm3 (0.1-0.6); Monocytes Percent Auto 7.6 % (2.6-8.5); Neutrophils Absolute Auto 4.5 K/mm3 (1.3-6.7); Neutrophils Percent Auto 83.3 % (45.5-73.1); Platelet Count Result 225 k/mm3 (150-375); Red Blood Count 3.05 M/mm3 (4.2-5.4); Red Cell Distribution Width 13.5 % (11.5-14.5); White Blood Count 5.4 K/mm3 (4.5-10.0)
[2021-07-20 23:24] LABS: Alanine Aminotransferase 13 U/L (4-35); Albumin Level 3.5 g/dL (3.5-5.1); Alkaline Phosphatase 110 U/L (38-126); Anion Gap 11 mmol/L (8-16); Aspartate Amino Transferase 53 U/L (14-36); Bilirubin,Total 0.5 mg/dL (0.2-1.3); Blood Urea Nitrogen 9 mg/dL (7-17); CRP 2.4 mg/dL (<1.0); Calcium 8.7 mg/dL (8.4-10.2); Carbon Dioxide 17 mmol/L (22-30); Chloride 104 mmol/L (98-107); Estimated CRCL calculation 52 ml/min; Estimated Glomerular Filt Rate > 60; Glucose 134 mg/dL (65-110); Potassium 4.1 mmol/L (3.4-5.0); Sodium 132 mmol/L (137-145)
[2021-07-21] VITALS (19 sets, daily range): BP systolic 92–143; BP diastolic 52–79; PULSE 68–161; RESP 16–21; TEMP 36.2–38.7; O2SAT 97–100
[2021-07-21] MEDS: LACTATED RINGERS 1,000 ML 75 ML IV CONT (01:49)
[2021-07-21 01:55] LABS: Add Urine Microscopic? NO; Appearance Urine Clear (Clear); Bilirubin Urine Negative (Negative); Blood Urine Negative (Negative); Color Urine Yellow (Yellow); Glucose Urine UA Negative (Negative); Ketones Urine Negative (Negative); Leukocyte Esterase Ur Negative LEU/UL (Negative); Nitrate Urine Negative (Negative); Protein Urine Negative (Negative); Specific Grav Ur 1.012 (1.001-1.035); Urobilinogen Urine Negative mg/dL (<2.0)
[2021-07-21 05:36] LABS: Basophils Percent Auto 0.7 % (0.2-1.2); Eosinophils Percent Auto 0.5 % (0-4.4); Hematocrit 25.1 % (37.0-47.0); Hemoglobin 8.3 g/dL (12.0-15.0); Immature Granulocyte Absolute 0.02 K/mm3 (0.00-0.031); Immature Granulocyte Percent A 0.5 % (0-0.5); Lymphocytes Absolute Auto 0.73 K/mm3 (0.9-3.2); Lymphocytes Percent Auto 17.1 % (18.3-44.2); Mean Corpuscular HGB Conc 33.1 g/dl (32-36); Mean Corpuscular Hemoglobin 27.9 pg (26-34); Mean Corpuscular Volume 84.2 fl (80-100); Monocytes Absolute Auto 0.4 K/mm3 (0.1-0.6); Monocytes Percent Auto 10.1 % (2.6-8.5); Neutrophils Percent Auto 71.1 % (45.5-73.1); Platelet Count Result 311 k/mm3 (150-375); Red Blood Count 2.98 M/mm3 (4.2-5.4); Red Cell Distribution Width 13.3 % (11.5-14.5); White Blood Count 4.3 K/mm3 (4.5-10.0)
[2021-07-21 05:47] LABS: Anion Gap 10 mmol/L (8-16); Blood Urea Nitrogen 7 mg/dL (7-17); CRP 2.4 mg/dL (<1.0); Calcium 8.8 mg/dL (8.4-10.2); Carbon Dioxide 17 mmol/L (22-30); Chloride 106 mmol/L (98-107); Estimated CRCL calculation 60 ml/min; Estimated Glomerular Filt Rate > 60; Glucose 109 mg/dL (65-110); Potassium 3.7 mmol/L (3.4-5.0); Sodium 133 mmol/L (137-145)
--- NOTE | 2021-07-21 08:41 | PC.NURSE ---
Called [facility] & spoke with Transfer Department, inquired regarding bed availability & whether patient is still on the transfer list. Pt remains on transfer list. No beds available at this time, a bed will be given to patient for transfer to [facility] when a bed becomes available.
[2021-07-21 08:45] LABS: Lactate Dehydrogenase 549 U/L (313-618)
[2021-07-21 08:47] LABS: Lactic Acid Reflex 1.6 mmol/L (0.7-2.1)
[2021-07-21] MEDS: MAGNESIUM OXIDE 400 MG TABLET PO (09:20)
[2021-07-21] MEDS: FAMOTIDINE 20 MG/2 ML VIAL IV PUSH ×2 (09:20→21:20)
--- NOTE | 2021-07-21 09:38 | PM.IMPN ---
Progress Note: A&P Assessment and Plan (1) Fever: Code(s): R50.9 - Fever, unspecified Status: Acute Assessment and Plan: 07/20: Patient spiked a fever of 100.7F overnight and has been slightly tachycardic today. But denies any respiratory symptoms, abdominal symptoms or urinary symptoms. 07/21: Patient spiked a temperature of 102.8, found to be tachycardic with an increased respiratory rate at 2200. UA was drawn and normal. CXR showing mild pulmonary edema. Stable airspace opacities at left lung base, consistent with atelectasis versus pneumonia. Blood cultures taken. Family still denies any coughing, SOB or ZAPATA with the patient. Only concern was Altered mental status changes last evening, but now she is at her baseline. IV Abx switched from IV Rocephin (#5) to IV Zosyn #1. Atelectasis could cause fever. Will order Incentive spirometer Vitals this AM: afebrile, 119/65, 80 bpm, 100 % on RA. Will obtain CT Brain, CTA Chest and Ct Abd/Pelvis looking for infection source WBC was slightly low this morning, could also be viral cause, patient is covid vaccinated and not having any rhinorrhea, congestion, loss of taste of smell. CRP slightly elevated at 2.4, LDH normal, Lactic 1.6, Ferritin pending Continue monitoring vitals (2) AMS (altered mental status): Code(s): R41.82 - Altered mental status, unspecified Status: Acute Assessment and Plan: Suspect multifactorial from dementia and UTI. Family states she was more confused last night, not talking to them, and her eyes were looking up at the ceiling and rolling back in her head . Will obtain an EEG This morning shes back to baseline per daughter and daughter in law Continue monitoring. (3) Aneurysm of left internal carotid artery: Code(s): I67.1 - Cerebral aneurysm, nonruptured Status: Acute Assessment and Plan: CTA showed 6 x 4 x 4 mm aneurysm at the suprasellar cistern arising from the C7 segment of the left internal carotid artery Pt has been accepted by Dr. Mcgarry at [facility] ([facility]); Dr. Ortega consulted (NS) Keep SBP <140 She is not having any worsening symptoms at this time for her aneurysm. Supportive care (4) Hyponatremia: Code(s): E87.1 - Hypo-osmolality and hyponatremia Status: Acute Assessment and Plan: Stable, Na+ 133 today, 128 on admission Monitor (5) Depression with anxiety: Code(s): F41.8 - Other specified anxiety disorders Status: Chronic Assessment and Plan: The patient was recently started on an SSRI, missed last day or two before admission previous provider continues to say she has been on an SSRI yet there is no home medications and she is not currently on any SSRIs so the nurse will recheck her home med list with her daughter when she comes back (6) Adult failure to thrive: Code(s): R62.7 - Adult failure to thrive Status: Acute Assessment and Plan: Hx of dementia. Stable at this time per daughter. Monitor Additional Plan transfer to [facility] when bed available Time Spent With Patient Time with patient: 25 - 35 minutes Subjective Date/time seen: 07/21/21 09:38 Interval history: Date of service 07/21/2021: Talked to the patient and her daughter and [id number] at bedside who states that last evening the patient was not listening to them, not responding,. To be looking up at the ceiling in her ?eyes were rolling back . They had not noticed anything like this happening before and it lasted for a while. She then spiked a fever overnight and was breathing fast. They did not notice the patient coughing, complaining of shortness of breath, chest pain, nausea
[2021-07-21] MEDS: ACETAMINOPHEN 325 MG TABLET 650 MG PO (14:46)
[2021-07-21 17:28] LABS: EDCOVIDSCREEN Negative (Negative)
[2021-07-21 17:46] LABS: Basophils Percent Auto 0.4 % (0.2-1.2); Eosinophils Absolute Auto 0.1 K/mm3 (0-0.3); Hematocrit 25.1 % (37.0-47.0); Hemoglobin 8.3 g/dL (12.0-15.0); Immature Granulocyte Absolute 0.02 K/mm3 (0.00-0.031); Immature Granulocyte Percent A 0.4 % (0-0.5); Lymphocytes Absolute Auto 0.47 K/mm3 (0.9-3.2); Lymphocytes Percent Auto 9.2 % (18.3-44.2); Mean Corpuscular HGB Conc 33.1 g/dl (32-36); Mean Corpuscular Hemoglobin 28.4 pg (26-34); Mean Platelet Volume 10.2 fl (7.4-10.4); Monocytes Absolute Auto 0.4 K/mm3 (0.1-0.6); Monocytes Percent Auto 7.7 % (2.6-8.5); Neutrophils Absolute Auto 4.1 K/mm3 (1.3-6.7); Neutrophils Percent Auto 81.3 % (45.5-73.1); Platelet Count Result 320 k/mm3 (150-375); Red Blood Count 2.92 M/mm3 (4.2-5.4); Red Cell Distribution Width 13.6 % (11.5-14.5); White Blood Count 5.1 K/mm3 (4.5-10.0)
[2021-07-21 17:55] LABS: INR 1.1; Prothrombin Time 13.6 Seconds (11.1-14.7)
[2021-07-21 17:56] LABS: Partial Thromboplastin Time 33.7 SECONDS (22.3-36.8)
--- NOTE | 2021-07-21 19:17 | PC.NURSE ---
unable to give 1500 zosyn in time because patient in MRI and lumbar puncture
--- NOTE | 2021-07-21 19:45 | PC.NURSE ---
pt returned in bed from lumbar puncture
[2021-07-21 20:16] LABS: Glucose CSF 60 mg/dL (40-70); Total Protein CSF 84 mg/dL (12-60)
[2021-07-21 20:39] LABS: Appearance CSF Clear (Clear); CSF source CSF; Color CSF Colorless (Colorless); Nucleated Cell CSF 36 /uL (0-5); Red Blood Cell CSF 681 (0-2)
--- NOTE | 2021-07-21 20:39 | PC.NURSE ---
This patient, Jj Rodriguez, was transferred to [ ICU 2] on 07/21/21 at 1999. Personal belongings sent with patient. Report given to [ Dana HALL]. Appropriate documentation sent with patient.
[2021-07-21 20:44] LABS: Lymphocytes CSF 52 % (40-80); Neutrophils CSF 4 % (0-6)
[2021-07-21 20:45] LABS: Macrophages CSF 5; Monocytes CSF 39 % (15-45)
[2021-07-21] MEDS: HEPARIN SOD/D5W 100 UNITS/ML 25,000 UNITS/250 ML BAG 11 UNITS IV CONT (21:17)
[2021-07-22] VITALS (15 sets, daily range): BP systolic 88–124; BP diastolic 52–73; PULSE 75–101; RESP 18–26; TEMP 36–37.8; O2SAT 98–100
--- NOTE | 2021-07-22 01:32 | PC.NURSE ---
This patient, Jj Rodriguez, was received from [address] [place] [address] on 07/21/21 at 2000. REPORT RECEIVED FROM MICHAEL HALL. FAMILY MEMBER AT BEDSIDE. Patient/family oriented to unit policies and routines
[2021-07-22 03:49] LABS: Basophils Percent Auto 0.7 % (0.2-1.2); Eosinophils Absolute Auto 0.1 K/mm3 (0-0.3); Eosinophils Percent Auto 1.9 % (0-4.4); Hematocrit 30.1 % (37.0-47.0); Hemoglobin 9.3 g/dL (12.0-15.0); Immature Granulocyte Absolute 0.01 K/mm3 (0.00-0.031); Immature Granulocyte Percent A 0.2 % (0-0.5); Lymphocytes Absolute Auto 0.77 K/mm3 (0.9-3.2); Lymphocytes Percent Auto 17.9 % (18.3-44.2); Mean Corpuscular HGB Conc 30.9 g/dl (32-36); Mean Corpuscular Hemoglobin 28.6 pg (26-34); Mean Corpuscular Volume 92.6 fl (80-100); Mean Platelet Volume 10.2 fl (7.4-10.4); Monocytes Absolute Auto 0.5 K/mm3 (0.1-0.6); Monocytes Percent Auto 10.7 % (2.6-8.5); Neutrophils Absolute Auto 2.9 K/mm3 (1.3-6.7); Neutrophils Percent Auto 68.6 % (45.5-73.1); Platelet Count Result 321 k/mm3 (150-375); Red Blood Count 3.25 M/mm3 (4.2-5.4); Red Cell Distribution Width 13.6 % (11.5-14.5); White Blood Count 4.3 K/mm3 (4.5-10.0)
[2021-07-22] MEDS: ACETAMINOPHEN 325 MG TABLET 650 MG PO ×2 (03:50→15:36)
[2021-07-22 04:01] LABS: Partial Thromboplastin Time 77.9 SECONDS (22.3-36.8)
[2021-07-22 04:14] LABS: Alanine Aminotransferase 17 U/L (4-35); Albumin Level 3.8 g/dL (3.5-5.1); Alkaline Phosphatase 127 U/L (38-126); Anion Gap 12 mmol/L (8-16); Aspartate Amino Transferase 58 U/L (14-36); Bilirubin,Total 0.4 mg/dL (0.2-1.3); Blood Urea Nitrogen 7 mg/dL (7-17); CRP 2.8 mg/dL (<1.0); Carbon Dioxide 21 mmol/L (22-30); Chloride 105 mmol/L (98-107); Estimated CRCL calculation 52 ml/min; Estimated Glomerular Filt Rate > 60; Glucose 107 mg/dL (65-110); Potassium 3.7 mmol/L (3.4-5.0); Sodium 138 mmol/L (137-145)
--- NOTE | 2021-07-22 07:50 | PM.IMPN ---
Progress Note: A&P Assessment and Plan (1) Fever: Code(s): R50.9 - Fever, unspecified Status: Acute Assessment and Plan: -Unknown etiology -Fevers could be related to viral encephalitis, pulmonary embolsism or another concurrent infectious process. MRI brain on 07/21/2021 showed diffuse brain disease the differential diagnosis includes viral encephalitis and gliomatosis cerebri. -Lumbar puncture did show a increase in nucleated cells and elevated protein -infectious disease has been consulted and patient was started on acyclovir for suspicion for HSV encephalitis -patient is on a waiting list at [facility], [facility], [facility] (2) AMS (altered mental status): Code(s): R41.82 - Altered mental status, unspecified Status: Acute Assessment and Plan: Patient carries a diagnosis of left internal carotid artery aneurysm. the lesion appears stable without evidence of rupture or local compression. In addition, MRI is suspicious for viral encephalitis and gliomatosis cerebri. Given subacute presentation, a gliomatosis cerebri is a possibility. We are awaiting results from lumbar puncture fluid studies. (3) Aneurysm of left internal carotid artery: Code(s): I67.1 - Cerebral aneurysm, nonruptured Status: Acute Assessment and Plan: Neurosurgery at [facility] aware of the patient -keep blood pressures less than 140 mmHg -LEsion is stable for now (4) Pulmonary embolism: Code(s): I26.99 - Other pulmonary embolism without acute cor pulmonale Status: Acute Assessment and Plan: Patient had a CTA, found to have incidental PE -continue heparin infusion -patient on room air with adequate O2 sats -Due to the left ICA aneurysm, daughter informed about risk versus benefits of anticoagulation and family agrees to pursue treatment. (5) Encephalitis: Code(s): G04.90 - Encephalitis and encephalomyelitis, unspecified Status: Acute Assessment and Plan: Continue acyclovir, infectious disease has been consulted -likely viral -Follow up up viral encephalitis panel (6) Metabolic acidosis: Code(s): E87.2 - Acidosis Status: Acute Assessment and Plan: Resolved (7) Hyponatremia: Code(s): E87.1 - Hypo-osmolality and hyponatremia Status: Acute Assessment and Plan: Resolved, continue to monitor (8) Adult failure to thrive: Code(s): R62.7 - Adult failure to thrive Status: Acute Assessment and Plan: Failure to thrive could be related to possible gliomatosis cerebri -will have Oncology follow the patient -Encourage oral intake. -Antiemetics PRN. (9) DVT prophylaxis: Code(s): Z29.9 - Encounter for prophylactic measures, unspecified Status: Acute Assessment and Plan: Continue heparin infusion (10) Dietary counseling and surveillance: Code(s): Z71.3 - Dietary counseling and surveillance Status: Acute Assessment and Plan: Patient is tolerating her diet Additional Plan Discussed with patient and daughter. Aware of patient on the waiting list to be transferred to a tertiary hospital Code status: Full code Critical care time spent: 30 minutes Subjective Date/time seen: 07/22/21 07:50. S: Patient was seen at the bedside; daughter translating. No active complaints. Fever has improved. Appetite is good. Interval history: Patient 's health statuts has been deteriorating for over a loss with 40 lb weight loss, nausea, fever, lack of appetite and memory loss. Review of Systems Review of Systems: All systems reviewed & are unremarkable except as noted in HPI and below Constitutional: Constitutional: Reports as per HPI and Reports no additional constitutional complaints Eyes: Eyes: Reports as per HPI and Reports no additional eye complaints ENT: Reports system reviewed and no additional complaints, except as documented and Rep
--- NOTE | 2021-07-22 08:56 | WPDCNINT ---
Assessment and Plan Assessment and plan (1) Fever: Code(s): R50.9 - Fever, unspecified Status: Acute Assessment and Plan: Fevers could be related to viral encephalitis, lumbar puncture did show a increase in nucleated cells and elevated protein -infectious disease has been consulted and started patient on acyclovir -MRI brain on 07/21/2021 showed diffuse brain disease the differential diagnosis includes viral encephalitis and gliomatosis cerebri -patient is on a waiting list at [facility], [facility], [facility] (2) AMS (altered mental status): Code(s): R41.82 - Altered mental status, unspecified Status: Acute Assessment and Plan: Could be related to the above (3) Aneurysm of left internal carotid artery: Code(s): I67.1 - Cerebral aneurysm, nonruptured Status: Acute Assessment and Plan: Neurosurgery at [facility] aware of the patient -keep blood pressures less than 140 mmHg (4) Pulmonary embolism: Code(s): I26.99 - Other pulmonary embolism without acute cor pulmonale Status: Acute Assessment and Plan: Patient had a CTA, found to have incidental PE -continue heparin infusion -patient on room air with adequate O2 sats (5) Encephalitis: Code(s): G04.90 - Encephalitis and encephalomyelitis, unspecified Status: Acute Assessment and Plan: Continue acyclovir, infectious disease has been consulted -likely viral -viral encephalitis panel has been sent (6) Metabolic acidosis: Code(s): E87.2 - Acidosis Status: Acute Assessment and Plan: Resolved (7) Hyponatremia: Code(s): E87.1 - Hypo-osmolality and hyponatremia Status: Acute Assessment and Plan: Resolved, continue to monitor (8) Adult failure to thrive: Code(s): R62.7 - Adult failure to thrive Status: Acute Assessment and Plan: Failure to thrive could be related to possible gliomatosis cerebri -will have Oncology follow the patient (9) DVT prophylaxis: Code(s): Z29.9 - Encounter for prophylactic measures, unspecified Status: Acute Assessment and Plan: Continue heparin infusion (10) Dietary counseling and surveillance: Code(s): Z71.3 - Dietary counseling and surveillance Status: Acute Assessment and Plan: Patient a p.o. diet Additional Plan Discussed with patient and daughter. Aware of patient on the waiting list to be transferred to a tertiary hospital Code status: Full code Critical care time spent: 48 minutes This dictation may have been done utilizing a voice recognition system. Attempts have been made to correct errors. However, there may be uncorrected grammatical, spelling, and recognition errors present. Due to a high probability of clinically significant, life threatening deterioration, the patient required my highest level of preparedness to intervene emergently and I personally spent this critical care time directly and personally managing the patient. This critical care time included obtaining a history; examining the patient; pulse oximetry; ordering and review of studies; arranging urgent treatment with development of a management plan; evaluation of patient's response to treatment; frequent reassessment; and discussions with other providers. It was exclusive of separately billable procedures and treating other patients and teaching time. Please see Assessment and Plan section and the rest of the note for further information on patient assessment and treatment Public Health Microbiologist Consult Note Consult date: 07/22/21 Time Seen: 07:02 Reason for consult: Encephalopathy, encephalitis, brain aneurysm, pulmonary embolism on heparin infusion HPI: Jj Rodriguez is a 70 year old female past medical history of recent UTI depression, anxiety, dementia presented the ED on 07/14/2021 with complains of generalized weakness, failure to thrive, poor appe
[2021-07-22] MEDS: FAMOTIDINE 20 MG/2 ML VIAL IV PUSH ×2 (09:00→20:42)
[2021-07-22] MEDS: MAGNESIUM OXIDE 400 MG TABLET PO (09:00)
[2021-07-22 11:47] LABS: Partial Thromboplastin Time 143.8 SECONDS (22.3-36.8)
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
[2021-07-22 19:20] LABS: Partial Thromboplastin Time 98.1 SECONDS (22.3-36.8)
[2021-07-22] MEDS: HEPARIN SOD/D5W 100 UNITS/ML 25,000 UNITS/250 ML BAG 9 UNITS IV CONT (20:46)
[2021-07-23] VITALS: BP 103/77; PULSE 83; PULSE 86; RESP 24; TEMP 36.4; O2SAT 100
[2021-07-23 01:25] LABS: Partial Thromboplastin Time 98.5 SECONDS (22.3-36.8)
[2021-07-23 02:00] VITALS: BP 114/68; PULSE 91; RESP 28; O2SAT 100
[2021-07-23 03:40] VITALS: TEMP 39
[2021-07-23] MEDS: ACETAMINOPHEN 650 MG SUPPOSITORY RECTAL (03:40)
--- NOTE | 2021-07-23 06:35 | P.CDI_ITS ---
CDI Query Clarification Request 1) Encephalitis, likely viral has been documented. Altered mental status documented on admission. Please clarify if encephalitis was: * Present on admission * Not present on admission * Unable to determine 2) Pulmonary Embolism has been documented Please clarify if pulmonary embolism was: * Present on admission * Not present on admission * Unable to determine <Shalini Gutierrez RN - Last Filed: 07/23/21 06:39> Clarified Diagnosis (1) Encephalitis: Code(s): G04.90 - Encephalitis and encephalomyelitis, unspecified <Shalini Gutierrez RN - Last Filed: 07/23/21 06:39> Status: Acute <Shalini Gutierrez RN - Last Filed: 07/23/21 06:39> Assessment and Plan: Present on admission <Susu Lopez MD - Last Filed: 07/23/21 07:19> (2) Pulmonary embolism: Code(s): I26.99 - Other pulmonary embolism without acute cor pulmonale <Shalini Gutierrez RN - Last Filed: 07/23/21 06:39> Status: Acute <Shalini Gutierrez RN - Last Filed: 07/23/21 06:39> Assessment and Plan: Unable to determine. <Susu Lopez MD - Last Filed: 07/23/21 0 7:19>
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
[2021-07-24 23:30] LABS: Cryptococcus Antigen Not Detected (Not Detected); Cryptococcus Specimen Source CSF
[2021-07-25 15:20] LABS: Epstein Barr Virus DNA PCR Not Detected (Not Detected); Source Epstein Barr Virus CSF
[2021-07-25 17:26] LABS: Herpes Simplex Type 1 DNA PCR Not Detected (Not Detected); Herpes Simplex Type 2 DNA PCR Not Detected (Not Detected)
[2021-07-26 16:04] LABS: VDRL Quantitative CSF Nonreactive (Nonreactive)
[2021-07-27 15:38] LABS: West Nile Virus, IgM <0.90 index (<0.90)
[2021-07-30 16:06] LABS: Albumin, CSF 33.2 mg/dL (8.0-42.0); Albumin, Serum 3.1 g/dL (3.2-4.6); IgG Index, CSF 0.53 (<0.66); IgG, CSF 6.2 mg/dL (0.8-7.7); Immunoglobulin G, Serum 1100 mg/dL (600-1540); Myelin Basic Protein, CSF 3.8 mcg/L (2.0-4.0)
[2021-08-23 12:44] LABS: West Nile Virus, IgM <0.90
== END 2021-07-23 03:55 | disposition short-term general hospital (02) | DRG 97 ==
LOC: ANHED 18:37 → ANH2MED 19:31 → ANHICU 07-22 06:51 → ANH2MED 07-24 11:53 → ANHICU 07-24 11:53
PROVIDERS: Internal Medicine; Internal Medicine Infectious Disease; Nurse Practitioner; Nurse Practitioner Adult Health; Physician Assistant; Admitting Provider Internal Medicine Critical Care Medicine; Emergency Provider Emergency Medicine; PCP Internal Medicine; Visit Provider Internal Medicine
DX: A86 Unspecified viral encephalitis (principal); I26.99 Other pulmonary embolism without acute cor pulmonale; E87.1 Hypo-osmolality and hyponatremia; N39.0 Urinary tract infection, site not specified; E87.2 Acidosis; I72.0 Aneurysm of carotid artery; B96.20 Unspecified Escherichia coli [E. coli] as the cause of diseases classified elsewhere; R62.7 Adult failure to thrive; T50.995A Adverse effect of other drugs, medicaments and biological substances, initial encounter; F03.90 Unspecified dementia, unspecified severity, without behavioral disturbance, psychotic disturbance, mood disturbance, and anxiety; F41.8 Other specified anxiety disorders
CPT/HCPCS: 36415; 36600; 62328; 70450; 70496; 70498; 70553; 71045; 71046; 71275; 74177; 80048; 80053; 81001; 81003; 82040; 82042; 82533; 82728; 82784; 82805; 82945; 83605; 83615; 83690; 83735; 83873; 83916; 83930; 83935; 84157; 84300; 84443; 85025; 85027; 85610; 85730; 86140; 86403; 86592; 86617; 86635; 86787; 86788; 87015; 87040; 87070; 87077; 87086; 87088; 87102; 87116; 87186; 87206; 87255; 87426; 87497; 87529; 87798; 88108; 89051; 93005; 93306; 93880; 96361; 96365; 96366; 96375; 96376; 97110; 97116; 97161; 97165; 97530; 97535; 99285; A9270; A9577; C9803; G0378; J0131; J0133; J0696; J1644; J2543; J3480; J7030; J7120; Q9967